=== PATIENT | female | born 1990 | race Caucasian/White ===

== ENCOUNTER 2016-12-07 20:20 | Inpatient (IN) | payer OTHER ==
[~2016-12-07] VITALS: Ht 160 cm; Wt 66.3 kg
[2016-12-07 20:20] VITALS: O2SAT 99
[2016-12-07] MEDS ORDERED: MORPHINE SULFATE 8 MG/ML INJ ONE (20:21)
[2016-12-07 20:25] VITALS: O2SAT 100
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
[2016-12-07 21:04] LABS: I-STAT POTASSIUM 3.5 MMOL/L (3.5-4.9)
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
[2016-12-07 21:09] LABS: AUTOMATED NEUTROPHIL # 5.4 TH/MM3 (1.8-7.7); BASOPHIL # 0.1 TH/MM3 (0-0.2); BASOPHIL % 0.6 % (0.0-2.0); EOSINOPHIL # 0.5 TH/MM3 (0-0.4); EOSINOPHIL % 4.3 % (0.0-4.0); HEMATOCRIT 33.3 % (35.0-46.0); LYMPH % 43.6 % (9.0-44.0); LYMPHOCYTE # 5.2 TH/MM3 (1.0-4.8); MEAN CELL VOLUME 92.9 FL (80.0-100.0); MEAN CORPUSCULAR HEMOGLOBIN 31.4 PG (27.0-34.0); MEAN CORPUSCULAR HGB CONC 33.8 % (32.0-36.0); MONO % 6.5 % (0.0-8.0); PLATELET COUNT 290 TH/MM3 (150-450); RED BLOOD COUNT 3.59 MIL/MM3 (4.00-5.30); RED CELL DISTRIBUTION WIDTH 12.3 % (11.6-17.2)
[2016-12-07 21:12] LABS: HEMO FLAGS AUTO DIFF
[2016-12-07 21:16] VITALS: BP 120/68; PULSE 80; RESP 16; O2SAT 99
[2016-12-07 21:16] LABS: APTT (PATIENT) 21.7 SEC (24.3-30.1); PROTHROMBIN TIME - PATIENT 11.6 SEC (9.8-11.6)
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
[2016-12-07 21:18] VITALS: PULSE 80; RESP 16; O2SAT 99
[2016-12-07] MEDS ORDERED: IOHEXOL 350 MG/ML 10 ML VIAL (for RAD DIAG) IV ONE (21:18)
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
[2016-12-07 21:41] LABS: PLATELET ESTIMATE SMEAR NORMAL (NORMAL); PLATELET MORPHOLOGY NORMAL (NORMAL); SCAN/DIFF AUTO DIFF CONFIRMED
[2016-12-07] MEDS ORDERED: CHLORHEXIDINE GLUCONATE 2 % 1 PACK (2 CLOTHS) TOP PRN (21:45)
[2016-12-07] MEDS ORDERED: MISCELLANEOUS NURSING INFORMATION XX SCH (21:45)
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
[2016-12-07] MEDS: ONDANSETRON HCL 4 MG/2 ML VIAL IV PRN (23:16)
[2016-12-07] MEDS: HYDROmorphone HCL PF 1 MG/ML VIAL IVP PRN (23:17)
[2016-12-07] MEDS: LACTATED RINGER'S 1000 ML INJ 1,000 ML IV SCH (23:35)
[2016-12-08] MEDS ORDERED: INSULIN HUMAN REGULAR 1,000 UNITS/10 ML VIAL SQ PRN (00:15)
[2016-12-08] MEDS ORDERED: CHLORHEXIDINE GLUCONATE 2 % 1 PACK (2 CLOTHS) TOPICAL PRN (00:15)
[2016-12-08] MEDS ORDERED: LACTATED RINGER'S 1000 ML IV PRN (00:15)
[2016-12-08] MEDS ORDERED: SODIUM CHLORID 0.9% 500 ML IV PRN (00:15)
[2016-12-08] MEDS ORDERED: POVIDONE IODINE 5% (ANTISEPSIS KIT) 4 APPLICATIONS EACH NARE PRN (00:15)
[2016-12-08 00:27] VITALS: BP 135/69; PULSE 77; RESP 20; TEMP 97.7; O2SAT 100
[2016-12-08] MEDS: CHLORHEXIDINE GLUCONATE 2 % 1 PACK (2 CLOTHS) TOP SCH ×2 (00:42→06:38)
[2016-12-08] MEDS: HYDROmorphone HCL PF 1 MG/ML VIAL IVP PRN ×3 (02:19→09:04)
[2016-12-08 04:00] VITALS: BP 120/66; PULSE 83; RESP 16; TEMP 97; O2SAT 100
[2016-12-08] MEDS: DOCUSATE SODIUM 100 MG CAP PO SCH ×2 (06:54→20:40)
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
[2016-12-08] MEDS: ONDANSETRON HCL 4 MG/2 ML VIAL IV PRN ×2 (07:30→18:09)
[2016-12-08] MEDS: LACTATED RINGER'S 1000 ML INJ 1,000 ML IV SCH ×2 (07:37→20:40)
[2016-12-08 07:54] LABS: AUTOMATED NEUTROPHIL # 10.9 TH/MM3 (1.8-7.7); BASOPHIL % 0.3 % (0.0-2.0); EOSINOPHIL % 0.1 % (0.0-4.0); HEMATOCRIT 34.5 % (35.0-46.0); HEMO FLAGS DIFF FINAL; LYMPH % 12.8 % (9.0-44.0); LYMPHOCYTE # 1.8 TH/MM3 (1.0-4.8); MEAN CELL VOLUME 93.3 FL (80.0-100.0); MEAN CORPUSCULAR HEMOGLOBIN 30.9 PG (27.0-34.0); MEAN CORPUSCULAR HGB CONC 33.1 % (32.0-36.0); MONO % 7.6 % (0.0-8.0); NEUT % 79.2 % (16.0-70.0); PLATELET COUNT 224 TH/MM3 (150-450); RED BLOOD COUNT 3.69 MIL/MM3 (4.00-5.30); RED CELL DISTRIBUTION WIDTH 12.1 % (11.6-17.2); WHITE BLOOD COUNT 13.7 TH/MM3 (4.0-11.0)
[2016-12-08 08:00] VITALS: BP 123/57; PULSE 68; RESP 16; TEMP 97; O2SAT 97
[2016-12-08 08:24] LABS: BICARBONATE 24.3 MEQ/L (21.0-32.0); POTASSIUM 3.7 MEQ/L (3.5-5.1)
[2016-12-08] MEDS ORDERED: FAMOTIDINE 20 MG/2 ML VIAL ONE (09:41)
[2016-12-08] MEDS ORDERED: HYDROmorphone HCL PF 2 MG/ML VIAL ONE (10:40)
[2016-12-08] MEDS ORDERED: ACETAMINOPHEN 1000 MG/100 ML VIAL IV ONE (10:40)
[2016-12-08] MEDS ORDERED: CLINDAMYCIN PHOS 600 MG/4 ML VIAL ONE (10:53)
[2016-12-08] MEDS ORDERED: VANCOMYCIN HCL 1000 MG VIAL ONE (10:53)
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
[2016-12-08] MEDS: GENTAMICIN SULFATE 80 MG/2 ML VIAL ONE ×2 (11:16→12:09)
[2016-12-08] MEDS ORDERED: LACTATED RINGER'S 1000 ML INJ 2,000 ML IV ONE (12:00)
[2016-12-08] MEDS ORDERED: PROPOFOL 200 MG/20 ML AMP IV ONE (12:00)
[2016-12-08] MEDS ORDERED: ONDANSETRON HCL 4 MG/2 ML VIAL IV PUSH ONE (12:00)
--- NOTE | 2016-12-08 12:58 | PD.OP ---
cc: Blu Rosales MD Operative Report Date of Surgery: Dec 08, 2016 Preoperative Diagnosis: Left tibial shaft fracture, left olecranon fracture Postoperative Diagnosis: Procedure: Left tibia intramedullary nail fixation, open reduction and fixation left olecranon Anesthesia: Gen. Surgeon: Blu Rosales Licensed Direct Entry Midwife(s): KATELYN Tavarez PA-C The surgical procedure was assisted by my physician nurseryman assistant. My P.A. presence was necessary throughout this case for the manipulation and positioning of the surgical extremity. My P.A. was assisting me throughout the duration of this procedure. The skill set of a physician nurseryman assistant was medically necessary to complete this procedure. During the surgical case the manager surgical was working at the back table and the physician nurseryman assistant was directly assisting me. Operation and Findings: Implants: synthes [9]mm x [300]mm tibial nail Plan of activity: Toe-touch weightbearing left leg, nonweightbearing left arm Patient was seen and examined preoperatively. She was found to have a displaced left tibia shaft fracture and a left olecranon fracture. An informed consent was obtained from patient after detailed discussion of risk and benefits. Risks of surgery include bleeding, infection, painful hardware, nonunion, malunion, leg length discrepancy, need for hardware removal, and medical complications associated with anesthesia including blood clots, stroke, heart attack, and were discussed. Operative site was marked. Patient was brought to the operating room placed on or table. Patient received IV antibiotics and was given IV sedation GETA. Operative leg was prepped with alcohol Hibiclens and draped in usual sterile fashion. Timeout procedure was performed Procedure began with reduction of fracture. Traction was applied. Fracture was reduced. There was comminution of the fracture. The fracture reduced and excellent alignment was achieved. Next a 3 cm incision was made proximal to the patella. Quadriceps tendon was split in line with fibers. Cannulas were placed in the patellofemoral joint to protect the articular surface at all times. A guidepin was placed into the tibia and advanced in the tibial canal. Fluoroscopy was used to confirm appropriate guidepin placement. An opening reamer was used to open the tibial canal. A ball-tipped guidewire was advanced down the tibial canal. Guidepin was passed across the fracture site into the center of the distal tibia. Fluoroscopy confirmed guidepin placement. The nail length was now measured. The fracture was now held in a reduced position and the canal was reamed. The canal was reamed up to appropriate size. A Synthes nail was now selected. Next the nail was fully seated. Using perfect [place] technique 2 distal interlocking screws were placed. Using the insertion handle as a guide 2 proximal interlocking screws were placed. Fluoroscopy confirmed excellent of fracture with well-placed hardware. Incisions and the knee joint were thoroughly irrigated with sterile saline. Fascia was closed with #1 Vicryl, subcutaneous tissues closed with 3-0 Vicryl and skin was closed with slick. Sterile dressings were applied. Patient was now repositioned. She was placed in lateral decubitus position. The left arm was prepped with alcohol followed by Hibiclens and draped in usual sterile fashion. Procedure began with a 4 inch incision over the olecranon. Subcutaneous tissue dissected with Bovie. Fracture site was visualized. Fascia was elevated around the fracture site. There was mild comminution of the fracture site. Fracture fragments were gently manipulated. A fracture tenaculum was used to aid in reduction. Multiple K wires result provisional fixation. A Synthes proximal plate was selected. Plate was provisionally held with K wires 3.5 cortical screws were used to compress plate to bone. Multiple cortical screws were placed in the ulna shaft. Multiple locking screws were placed in the proximal ulna. All screws were predrilled and premeasured for appropriate length. K wires were removed. Final fluoroscopy revealed excellent of fractures well-placed hardware. Articular surface appeared to be in near anatomic alignment. Wound was now thoroughly irrigated. Incision was now closed with #1 Vicryl, 3-0 Vicryl, and slick. Sterile dressings were applied. Patient's placed a well molded well-padded splint. Patient was transferred to recovery in stable condition.. Blu Rosales MD Dec 08, 2016 12:58
[2016-12-08] MEDS ORDERED: ceFAZolin 2 GM PREMIX 50 ML IV SCH (13:00)
[2016-12-08] MEDS ORDERED: Post-op Orders (for Pharmacy) MISC XX ONE (13:00)
[2016-12-08] MEDS ORDERED: SUGAMMADEX SODIUM 200 MG/2 ML VIAL IV PUSH ONE ×2 (13:09)
[2016-12-08] MEDS ORDERED: fentaNYL CITRATE 250 MCG/5 ML AMP ONE (13:20)
[2016-12-08] MEDS ORDERED: *MEPERIDINE 25 MG INJ VIAL PERIprocedural Use ONLY ONE (13:24)
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
--- NOTE | 2016-12-08 13:51 | OTSOAPIP ---
ATTEMPTED TO SEE PATIENT X 2 IN AM AND PM FOR INITIAL OCCUPATIONAL THERAPY EVALUATION, HOWEVER PATIENT IS OFF FLOOR FOR SURGERY. WILL REATTEMPT TOMORROW. INTERDISCIPLINARY COMMUNICATION: REVIEWED ELECTRONIC MEDICAL RECORD, SPOKE WITH KRYSTLE HONEYCUTT Therapist: Ronel Phan OTR/L Signature on file
[2016-12-08] MEDS ORDERED: *morphine SULFATE 8 MG/ML PERIprocedure ONLY ONE (13:58)
[2016-12-08] MEDS: ACETAMINOPHEN/HYDROcodone 325 MG/10 MG TAB PO PRN ×3 (14:39→23:11)
[2016-12-08] MEDS ORDERED: diphenhydrAMINE HCL 25 MG CAP PO PRN (15:15)
--- NOTE | 2016-12-08 15:19 | RADRPT ---
EXAM DATE/TIME: 12/08/2016 11:44 [facility] COMPARISON: ELBOW LEFT LIMITED (AP & LAT), December 07, 2016, 20:27. INDICATIONS : Open reduction internal fixation left elbow. MEDICAL HISTORY : None. SURGICAL HISTORY : None. ENCOUNTER: Initial ACUITY: 1 day PAIN SCORE: Non-responsive. LOCATION: Left elbow FINDINGS: 3 images of the elbow are recorded digitally in the operating room using C-arm during placement of pr oximal ulnar plate and screws. CONCLUSION: Intraoperative images. Sampson Handy MD on December 08, 2016 at 15:17 Board Certified Radiologist. This report was verified electronically.
--- NOTE | 2016-12-08 15:21 | RADRPT ---
EXAM DATE/TIME: 12/08/2016 11:44 [facility] COMPARISON: No previous studies available for comparison. INDICATIONS : Open reduction internal fixation left tibia. MEDICAL HISTORY : None. SURGICAL HISTORY : None. ENCOUNTER: Initial ACUITY: 1 day PAIN SCORE: Non-responsive. LOCATION: Left tib/fib. FINDINGS: 6 images are recorded digitally in the operating room during placement of intramedullar y olga in the tibia with proximal and distal intercalated screws. CONCLUSION: Intraoperative images. Sampson Handy MD on December 08, 2016 at 15:18 Board Certified Radiologist. This report was verified electronically.
[2016-12-08] MEDS ORDERED: MIDAZOLAM HCL 2 MG/2 ML VIAL ONE (16:47)
[2016-12-08] MEDS: MORPHINE SULFATE 4 MG/ML INJ IV PUSH PRN ×2 (16:59→20:40)
[2016-12-08 17:00] VITALS: BP 110/72; PULSE 80; RESP 16; TEMP 96.4; O2SAT 95
[2016-12-08] MEDS: CLINDAMYCIN 600 MG/NS 100 ML IV SCH ×2 (18:08)
[2016-12-08] MEDS: BACITRACIN TOP OINT 15 GM TUBE TOPICAL SCH (20:40)
[2016-12-08 20:45] VITALS: BP 110/64; PULSE 70; RESP 17; TEMP 96.4; O2SAT 99
[2016-12-09 00:11] VITALS: BP 114/74; PULSE 74; RESP 17; TEMP 97.7; O2SAT 100
[2016-12-09] MEDS: CLINDAMYCIN 600 MG/NS 100 ML IV SCH ×6 (02:06→15:50)
[2016-12-09] MEDS: ACETAMINOPHEN/HYDROcodone 325 MG/10 MG TAB PO PRN ×2 (04:04→08:09)
[2016-12-09 04:35] VITALS: BP 117/73; PULSE 83; RESP 17; TEMP 96.9; O2SAT 99
[2016-12-09] MEDS: ONDANSETRON HCL 4 MG/2 ML VIAL IV PRN ×2 (04:43→20:14)
[2016-12-09] MEDS: MORPHINE SULFATE 4 MG/ML INJ IV PUSH PRN ×5 (04:44→22:59)
[2016-12-09] MEDS: ENOXAPARIN SODIUM 40 MG/0.4 ML SYRINGE SQ SCH (06:09)
[2016-12-09 08:00] VITALS: BP 109/60; PULSE 84; RESP 18; TEMP 96.4; O2SAT 97
[2016-12-09] MEDS: DOCUSATE SODIUM 100 MG CAP PO SCH ×2 (08:09→21:00)
[2016-12-09] MEDS: MAGNESIUM HYDROXIDE SUSP 30 ML CUP PO PRN (08:09)
[2016-12-09] MEDS: BACITRACIN TOP OINT 15 GM TUBE TOPICAL SCH ×2 (08:10→20:17)
[2016-12-09] MEDS: LACTATED RINGER'S 1000 ML INJ 1,000 ML IV SCH (08:18)
--- NOTE | 2016-12-09 08:57 | PD.ORT.PN ---
Subjective Subjective Remarks Moderate left arm and left leg pain. States it 'aches and throbs'. Feel weak and tired. No new radiating LE complaints. No new CP, SOB or abd pain. Objective Vitals Vital Signs Date Time Temp Pulse Resp B/P Pulse Ox O2 Delivery O2 Flow Rate FiO2 12/09/16 08:00 96.4 84 18 109/60 97 12/09/16 04:35 96.9 83 17 117/73 99 12/09/16 00:11 97.7 74 17 114/74 100 12/08/16 20:45 96.4 70 17 110/64 99 12/08/16 17:00 96.4 80 16 110/72 95 12/08/16 14:10 65 12 99 Room Air 12/08/16 14:00 98.5 65 12 118/82 100 Nasal Cannula 2 12/08/16 13:45 66 12 117/81 100 Nasal Cannula 2 12/08/16 13:30 65 12 117/75 100 Nasal Cannula 2 12/08/16 13:15 98.3 88 14 135/85 100 Nasal Cannula 4 I/O 12/08/16 12/08/16 12/08/16 12/09/16 12/09/16 12/09/16 07:00 15:00 23:00 07:00 15:00 23:00 Intake Total 0 ml 900 ml 240 ml 240 ml Output Total 150 ml Balance 0 ml 750 ml 240 ml 240 ml Intake Oral 0 ml 240 ml 240 ml Other 900 ml Output Estimated Blood Loss 150 ml # Voids 1 2 2 # Bowel Movements 0 0 0 Result Diagram: 12/08/16 0711 12/08/16 0711 Imaging Last [address] 12/07/162030 Signed Impressions: Service Date/Time: December 20:48 - CONCLUSION: 1. No acute findings in the brain. 2. 1.8 cm high left occipital scalp hematoma without evidence of skull fracture. Sampson Handy MD Chest X-Ray 12/07/162030 Signed Impressions: Service Date/Time: December 20:27 - CONCLUSION: The lungs are clear. Sampson Handy MD Chest CT 12/07/162030 Signed Impressions: Service Date/Time: December 20:54 - CONCLUSION: Normal opacity posterior left midlung could represent atelectasis or contusion. Otherwise negative trauma CT thorax. Sampson Handy MD Cervical Spine CT 12/07/162030 Signed Impressions: Service Date/Time: December 20:48 - CONCLUSION: Negative trauma CT cervical spine. Sampson Handy MD Abdomen/Pelvis CT 12/07/162030 Signed Impressions: Service Date/Time: December 20:54 - CONCLUSION: Negative trauma CT abdomen/pelvis with contrast. Sampson Handy MD Objective Remarks Laying in bed, NAD VSS LLE Long leg splint in place, mild swelling toes, +niv, wiggles toe, sens slightly diminished but intact, LUE Sling/dressings intact, mild swelling hand, +flat clothier 4/5, Sensation intact Assessment & Plan Ortho Post Op Day #: 1 Problem List: Assessment and Plan 1) Left Olecranon Fx 2) Left Tibial Shaft Fx pod#1 s/p ORIF Left tibia, IM olga; ORIF left olecranon PO pain control as needed. Sling LUE, Splint LLE - maintain and keep dry. Ice/Elevate NonWBing LUE; TTWBing LLE. Lovenox for dvt prophylaxis. D/C planning - may be candidate to go home as her parents live in [facility]. Corrina Rodriguez Dec 09, 2016 08:57
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
[2016-12-09] MEDS: oxyCODONE/ACETAMINOPHEN 5 MG/325 MG TAB PO PRN ×3 (11:42→21:00)
[2016-12-09 12:00] VITALS: BP 98/53; PULSE 78; RESP 16; TEMP 97.7; O2SAT 94
[2016-12-09] MEDS ORDERED: MAGN400S PO (15:09)
[2016-12-09] MEDS ORDERED: DOCU1CAP39 PO (15:09)
[2016-12-09 16:00] VITALS: BP 101/58; PULSE 84; RESP 16; TEMP 97.8; O2SAT 98
[2016-12-09 20:40] VITALS: BP 118/62; PULSE 84; RESP 17; TEMP 96.5; O2SAT 99
[2016-12-09] MEDS ORDERED: WALKER/FOLDING1 MIS (20:48)
--- NOTE | 2016-12-09 20:49 | HHI.FF ---
Face to Face Verification Diagnosis: (1) Fracture of left olecranon process (2) Fracture of left tibia and fibula Physical Therapy Order: Evaluate and Treat, Improve ambulation, Strength and gait training Home Health Nursing Order: Medical education Signs/symptoms of disease process Medication education-adverse effect Nursing assessment with vital signs I have seen patient Maria Teresa Lyn on 12/09/16. My clinical findings support the need for the requested home health care services because: Ltd mobility - disease progression Deconditioned w/ increased weakness Limited ability to care for self High risk of falls I certify that my clinical findings support that this patient is homebound because: Post-op weakness Unsteady gait/balance Unsafe to leave home unassisted Avy-daddeaddjw-reflphju bed/chair Unable to use public transportation Mulu Salas Dec 09, 2016 20:49 Unable to use public transportation Mulu Salas Dec 09, 2016 20:49
[2016-12-10 00:45] VITALS: BP 108/63; PULSE 92; RESP 17; TEMP 99.7; O2SAT 95
[2016-12-10] MEDS: oxyCODONE/ACETAMINOPHEN 5 MG/325 MG TAB PO PRN ×3 (01:20→10:36)
[2016-12-10] MEDS: CLINDAMYCIN 600 MG/NS 100 ML IV SCH ×4 (02:10→08:37)
[2016-12-10] MEDS: ONDANSETRON HCL 4 MG/2 ML VIAL IV PRN (03:40)
[2016-12-10] MEDS: MORPHINE SULFATE 4 MG/ML INJ IV PUSH PRN ×3 (03:40→12:15)
[2016-12-10 04:06] VITALS: BP 109/68; PULSE 89; RESP 17; TEMP 98.5; O2SAT 97
[2016-12-10 05:03] LABS: AUTOMATED NEUTROPHIL # 5.8 TH/MM3 (1.8-7.7); BASOPHIL # 0.1 TH/MM3 (0-0.2); BASOPHIL % 0.7 % (0.0-2.0); EOSINOPHIL # 0.3 TH/MM3 (0-0.4); EOSINOPHIL % 3.6 % (0.0-4.0); HEMATOCRIT 27.9 % (35.0-46.0); HEMO FLAGS DIFF FINAL; LYMPH % 19.2 % (9.0-44.0); LYMPHOCYTE # 1.6 TH/MM3 (1.0-4.8); MEAN CORPUSCULAR HEMOGLOBIN 31.4 PG (27.0-34.0); MEAN CORPUSCULAR HGB CONC 33.4 % (32.0-36.0); MONO % 7.9 % (0.0-8.0); NEUT % 68.6 % (16.0-70.0); PLATELET COUNT 180 TH/MM3 (150-450); RED BLOOD COUNT 2.97 MIL/MM3 (4.00-5.30); RED CELL DISTRIBUTION WIDTH 11.9 % (11.6-17.2); WHITE BLOOD COUNT 8.5 TH/MM3 (4.0-11.0)
[2016-12-10 05:24] LABS: ANION GAP 7 MEQ/L (5-15); AST (GOT) 21 U/L (15-37); BICARBONATE 26.2 MEQ/L (21.0-32.0); BLOOD UREA NITROGEN 5 MG/DL (7-18); CHLORIDE 104 MEQ/L (98-107); GLOMERULAR FILTRATION RATE 138 ML/MIN (>89); POTASSIUM 3.7 MEQ/L (3.5-5.1); SODIUM (NA) 137 MEQ/L (136-145)
[2016-12-10 05:25] LABS: ALT (GPT) 24 U/L (10-53)
[2016-12-10 05:27] LABS: ALKALINE PHOSPHATASE 27 U/L (45-117); TOTAL BILIRUBIN ADULT 0.5 MG/DL (0.2-1.0)
[2016-12-10] MEDS: ENOXAPARIN SODIUM 40 MG/0.4 ML SYRINGE SQ SCH (05:59)
[2016-12-10 08:00] VITALS: BP 115/64; PULSE 76; RESP 16; TEMP 97.5; O2SAT 97
[2016-12-10] MEDS: LACTULOSE SYRUP 20 GM/30 ML CUP PO SCH (08:37)
[2016-12-10] MEDS: MAGNESIUM HYDROXIDE SUSP 30 ML CUP PO PRN (08:37)
[2016-12-10] MEDS: DOCUSATE SODIUM 100 MG CAP PO SCH ×2 (08:37→22:05)
[2016-12-10] MEDS: BACITRACIN TOP OINT 15 GM TUBE TOPICAL SCH ×2 (08:40→22:06)
--- NOTE | 2016-12-10 09:00 | PD.ORT.PN ---
Subjective Subjective Remarks Fairly significant pain last night requiring injection. Father at bedside. Pain better today but concerned about nighttime pain tonight Objective Vitals Vital Signs Date Time Temp Pulse Resp B/P Pulse Ox O2 Delivery O2 Flow Rate FiO2 12/10/16 04:06 98.5 89 17 109/68 97 12/10/16 00:45 99.7 92 17 108/63 95 12/09/16 20:40 96.5 84 17 118/62 99 12/09/16 16:00 97.8 84 16 101/58 98 12/09/16 12:00 97.7 78 16 98/53 94 I/O 12/09/16 12/09/16 12/09/16 12/10/16 12/10/16 12/10/16 07:00 15:00 23:00 07:00 15:00 23:00 Intake Total 240 ml 720 ml 1987 ml 487 ml Balance 240 ml 720 ml 1987 ml 487 ml Intake Oral 240 ml 720 ml 240 ml 240 ml IV Total 1747 ml 247 ml # Voids 2 2 0 1 # Bowel Movements 0 0 0 0 Result Diagram: 12/10/16 0447 12/10/16 0447 Imaging Last [address] 12/07/162030 Signed Impressions: Service Date/Time: December 20:48 - CONCLUSION: 1. No acute findings in the brain. 2. 1.8 cm high left occipital scalp hematoma without evidence of skull fracture. Sampson Handy MD Chest X-Ray 12/07/162030 Signed Impressions: Service Date/Time: December 20:27 - CONCLUSION: The lungs are clear. Sampson Handy MD Chest CT 12/07/162030 Signed Impressions: Service Date/Time: December 20:54 - CONCLUSION: Normal opacity posterior left midlung could represent atelectasis or contusion. Otherwise negative trauma CT thorax. Sampson Handy MD Cervical Spine CT 12/07/162030 Signed Impressions: Service Date/Time: December 20:48 - CONCLUSION: Negative trauma CT cervical spine. Sampson Handy MD Abdomen/Pelvis CT 12/07/162030 Signed Impressions: Service Date/Time: December 20:54 - CONCLUSION: Negative trauma CT abdomen/pelvis with contrast. Sampson Handy MD Objective Remarks Laying in bed, NAD VSS LLE Long leg splint in place, mild swelling toes, +niv, wiggles toe, sens slightly diminished but intact, LUE Sling/dressings intact, mild swelling hand, +straight ruling machine operator 4/5, Sensation intact Assessment & Plan Ortho Post Op Day #: 2 Problem List: Assessment and Plan 1) Left Olecranon Fx 2) Left Tibial Shaft Fx pod#2 s/p ORIF Left tibia, IM olga; ORIF left olecranon PO pain control as needed. Sling LUE, Splint LLE - maintain and keep dry. Ice/Elevate NonWBing LUE; TTWBing LLE. Lovenox for dvt prophylaxis. D/C planning - may be candidate to go home as her parents live in [facility]. Probable discharge tomorrow, Sunday Luis Logan MD Dec 10, 2016 08:59
[2016-12-10 11:00] VITALS: BP 121/72; PULSE 85; RESP 16; TEMP 97.8; O2SAT 95
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
[2016-12-10] MEDS: IBUPROFEN 800 MG TAB PO SCH ×2 (12:15→22:05)
[2016-12-10] MEDS: PREGABALIN 25 MG CAP PO SCH ×2 (16:31→22:05)
[2016-12-10 16:34] VITALS: BP 122/78; PULSE 81; RESP 16; TEMP 97.6; O2SAT 99
[2016-12-10 20:10] VITALS: BP 118/67; PULSE 86; RESP 18; TEMP 97.7; O2SAT 100
[2016-12-11 00:05] VITALS: BP 116/67; PULSE 76; RESP 18; TEMP 99; O2SAT 100
[2016-12-11] MEDS: PREGABALIN 25 MG CAP PO SCH ×3 (06:09→21:32)
[2016-12-11] MEDS: IBUPROFEN 800 MG TAB PO SCH ×3 (06:12→21:31)
[2016-12-11] MEDS: ENOXAPARIN SODIUM 40 MG/0.4 ML SYRINGE SQ SCH (06:12)
--- NOTE | 2016-12-11 06:49 | PD.ORT.PN ---
Subjective Subjective Remarks POD 3 s/p IMN left tibia and left olecranon doing well. pain controlled. out of bed with therapy. Objective Vitals Vital Signs Date Time Temp Pulse Resp B/P Pulse Ox O2 Delivery O2 Flow Rate FiO2 12/11/16 00:05 99.0 76 18 116/67 100 12/10/16 20:10 97.7 86 18 118/67 100 12/10/16 16:34 97.6 81 16 122/78 99 12/10/16 11:00 97.8 85 16 121/72 95 12/10/16 08:00 97.5 76 16 115/64 97 I/O 12/10/16 12/10/16 12/10/16 12/11/16 12/11/16 12/11/16 07:00 15:00 23:00 07:00 15:00 23:00 Intake Total 487 ml 600 ml 240 ml 240 ml Balance 487 ml 600 ml 240 ml 240 ml Intake Oral 240 ml 600 ml 240 ml 240 ml IV Total 247 ml # Voids 1 3 1 2 # Bowel Movements 0 3 1 1 Result Diagram: 12/10/16 0447 12/10/16 0447 Imaging Last [address] 12/07/162030 Signed Impressions: Service Date/Time: December 20:48 - CONCLUSION: 1. No acute findings in the brain. 2. 1.8 cm high left occipital scalp hematoma without evidence of skull fracture. Sampson Handy MD Chest X-Ray 12/07/162030 Signed Impressions: Service Date/Time: December 20:27 - CONCLUSION: The lungs are clear. Sampson Handy MD Chest CT 12/07/162030 Signed Impressions: Service Date/Time: December 20:54 - CONCLUSION: Normal opacity posterior left midlung could represent atelectasis or contusion. Otherwise negative trauma CT thorax. Sampson Handy MD Cervical Spine CT 12/07/162030 Signed Impressions: Service Date/Time: December 20:48 - CONCLUSION: Negative trauma CT cervical spine. Sampson Handy MD Abdomen/Pelvis CT 12/07/162030 Signed Impressions: Service Date/Time: December 20:54 - CONCLUSION: Negative trauma CT abdomen/pelvis with contrast. Sampson Handy MD Objective Remarks Laying in bed, NAD VSS LLE dressings clean and dry. intact. moderate swelling of foot. NVI. neg jovanni LUE Sling/dressings intact, mild swelling hand, +master cosmetologist 4/5, Sensation intact Assessment & Plan Assessment and Plan 1) Left Olecranon Fx 2) Left Tibial Shaft Fx pod#3 s/p ORIF Left tibia, IM olga; ORIF left olecranon PO pain control as needed. splint to LUE/soft dressings to LLE Ice/Elevate NonWBing LUE; TTWBing LLE. Lovenox for dvt prophylaxis. D/C planning - home with [facility] ortho cleared for discharge home f/u with Jennifer or [facility] in 2 weeks Gage Albright Dec 11, 2016 06:49
[2016-12-11] MEDS ORDERED: COMMODE 3-IN-11 MIS (06:50)
[2016-12-11] MEDS ORDERED: HYDR-3583 PO (06:50)
[2016-12-11] MEDS ORDERED: WHEEMIS3 (06:50)
[2016-12-11] MEDS ORDERED: XARE10TA PO (06:50)
--- NOTE | 2016-12-11 06:52 | HHI.FF ---
Face to Face Verification Diagnosis: (1) Fracture of left olecranon process (2) Fracture of left tibia and fibula Physical Therapy Transfer training, bed to chair, Wheelchair training Left LE Weight Bearing: Toe Touch WB Occupational Therapy Left UE Weight Bearing: Non WB Left UE Range of Motion: No ROM Nursing Dressing Changes: Daily dressing change, Salvador wrap (LUE: no dressing changes. maintain splint at all times. LLE: daily with xeroform/4x4/SALVADOR), 4x4s, Xeroform I have seen patient Maria Teresa Lyn on 12/11/16. My clinical findings support the need for the requested home health care services because: Ltd mobility - disease progression I certify that my clinical findings support that this patient is homebound because: Post-op weakness Gage Albright Dec 11, 2016 06:52
[2016-12-11 08:00] VITALS: BP 121/78; PULSE 79; RESP 16; TEMP 97.9; O2SAT 98
[2016-12-11] MEDS: DOCUSATE SODIUM 100 MG CAP PO SCH ×2 (08:17→21:00)
[2016-12-11] MEDS: LACTULOSE SYRUP 20 GM/30 ML CUP PO SCH (08:19)
[2016-12-11] MEDS: BACITRACIN TOP OINT 15 GM TUBE TOPICAL SCH ×2 (08:19→21:32)
[2016-12-11 11:38] VITALS: BP 112/66; PULSE 72; RESP 16; TEMP 97.9; O2SAT 98
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
[2016-12-11] MEDS: MORPHINE SULFATE 4 MG/ML INJ IV PUSH PRN (15:22)
[2016-12-11 16:03] VITALS: BP 116/70; PULSE 71; RESP 20; TEMP 97.1; O2SAT 100
[2016-12-11 19:49] VITALS: BP 117/67; PULSE 68; RESP 18; TEMP 98; O2SAT 99
[2016-12-12 00:30] VITALS: BP 109/59; PULSE 60; RESP 18; TEMP 97.8; O2SAT 99
[2016-12-12] MEDS: IBUPROFEN 800 MG TAB PO SCH ×2 (05:18→14:31)
[2016-12-12] MEDS: PREGABALIN 25 MG CAP PO SCH ×2 (05:18→14:31)
[2016-12-12] MEDS: ENOXAPARIN SODIUM 40 MG/0.4 ML SYRINGE SQ SCH (05:18)
[2016-12-12] MEDS ORDERED: OXYC-395 PO (06:21)
--- NOTE | 2016-12-12 07:04 | PD.ORT.PN ---
Subjective Subjective Remarks POD 4 s/p IMN left tibia and left olecranon doing well. pain controlled. out of bed with therapy. Objective Vitals Vital Signs Date Time Temp Pulse Resp B/P Pulse Ox O2 Delivery O2 Flow Rate FiO2 12/12/16 00:30 97.8 60 18 109/59 99 12/11/16 19:49 98.0 68 18 117/67 99 12/11/16 19:28 Room Air 12/11/16 16:03 97.1 71 20 116/70 100 12/11/16 11:38 97.9 72 16 112/66 98 12/11/16 08:00 97.9 79 16 121/78 98 I/O 12/11/16 12/11/16 12/11/16 12/12/16 12/12/16 12/12/16 07:00 15:00 23:00 07:00 15:00 23:00 Intake Total 240 ml 480 ml 480 ml 480 ml Balance 240 ml 480 ml 480 ml 480 ml Intake Oral 240 ml 480 ml 480 ml 480 ml # Voids 2 2 2 0 # Bowel Movements 1 1 1 0 Result Diagram: 12/10/16 0447 12/10/16 0447 Imaging Last [address] 12/07/162030 Signed Impressions: Service Date/Time: December 20:48 - CONCLUSION: 1. No acute findings in the brain. 2. 1.8 cm high left occipital scalp hematoma without evidence of skull fracture. Sampson Handy MD Chest X-Ray 12/07/162030 Signed Impressions: Service Date/Time: December 20:27 - CONCLUSION: The lungs are clear. Sampson Handy MD Chest CT 12/07/162030 Signed Impressions: Service Date/Time: December 20:54 - CONCLUSION: Normal opacity posterior left midlung could represent atelectasis or contusion. Otherwise negative trauma CT thorax. Sampson Handy MD Cervical Spine CT 12/07/162030 Signed Impressions: Service Date/Time: December 20:48 - CONCLUSION: Negative trauma CT cervical spine. Sampson Handy MD Abdomen/Pelvis CT 12/07/162030 Signed Impressions: Service Date/Time: December 20:54 - CONCLUSION: Negative trauma CT abdomen/pelvis with contrast. Sampson Handy MD Objective Remarks Laying in bed, NAD VSS LLE dressings clean and dry. intact. moderate swelling of foot. NVI. neg jovanni LUE Sling/dressings intact, mild swelling hand, +external auditor 4/5, Sensation intact Assessment & Plan Assessment and Plan 1) Left Olecranon Fx 2) Left Tibial Shaft Fx pod#4 s/p ORIF Left tibia, IM olga; ORIF left olecranon PO pain control as needed. splint to LUE/soft dressings to LLE Ice/Elevate NonWBing LUE; TTWBing LLE. Lovenox for dvt prophylaxis. D/C planning - home with [facility] today ortho cleared for discharge home f/u with Jennifer or [facility] in 2 weeks Gage Albright Dec 12, 2016 07:04
[2016-12-12 08:00] VITALS: BP 113/67; PULSE 73; RESP 18; TEMP 97.7; O2SAT 96
[2016-12-12] MEDS: DOCUSATE SODIUM 100 MG CAP PO SCH (08:59)
[2016-12-12] MEDS: LACTULOSE SYRUP 20 GM/30 ML CUP PO SCH (08:59)
[2016-12-12] MEDS: BACITRACIN TOP OINT 15 GM TUBE TOPICAL SCH (09:00)
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
[2016-12-12 12:00] VITALS: BP 124/71; PULSE 77; RESP 19; TEMP 96.2; O2SAT 100
== END 2016-12-12 15:08 | disposition home or self-care (01) | DRG 493 ==
LOC: NEPI 20:20 → NEDA 21:20 → EDBD 21:20 → N06B 12-08
PROVIDERS: ADMIT Surgery; ATTEND Surgery
PROC: 0QSH36Z Reposition Left Tibia with Intramedullary Internal Fixation Device, Percutaneous Approach (ICD-10-PCS; principal; 2016-12-08 10:41)
PROC: 0PSL04Z Reposition Left Ulna with Internal Fixation Device, Open Approach (ICD-10-PCS; 2016-12-08 10:41)
DX: S82.252A Displaced comminuted fracture of shaft of left tibia, initial encounter for closed fracture (principal); S27.321A Contusion of lung, unilateral, initial encounter; S52.022A Displaced fracture of olecranon process without intraarticular extension of left ulna, initial encounter for closed fracture; S82.832A Other fracture of upper and lower end of left fibula, initial encounter for closed fracture; V23.5XXA Motorcycle passenger injured in collision with car, pick-up truck or van in traffic accident, initial encounter; Y92.488 Other paved roadways as the place of occurrence of the external cause; Y93.89 Activity, other specified; Y99.9 Unspecified external cause status; Z98.82 Breast implant status; S00.03XA Contusion of scalp, initial encounter; S30.810A Abrasion of lower back and pelvis, initial encounter; S80.212A Abrasion, left knee, initial encounter
CPT/HCPCS: 29105; 29505; 70450; 71010; 71260; 72125; 73070; 73560; 73590; 73600; 74177; 76000; 80048; 80053; 82435; 82565; 82947; 84132; 84295; 84520; 85025; 85610; 85730; 86850; 86900; 86901; 90471; 94150; 96374; 96375; 99291; C1713; C1769; G0390; J0131; J1170; J1580; J1650; J2175; J2250; J2270; J2405; J3010; J3370; J7120; Q9967